=== PATIENT | male | born 1975 | race Caucasian/White ===

== ENCOUNTER → 2024-05-28 14:45 | Outpatient (REF) | payer OTHER, SELFPAY | LOC: RAD 14:45 | PROVIDERS: ATTENDING PHYSICIAN Family Medicine | DX: M54.9 Dorsalgia, unspecified (principal); N39.0 Urinary tract infection, site not specified | CPT/HCPCS: 76770 ==

== ENCOUNTER 2025-03-26 15:34 | Emergency (ER) | payer OTHER, SELFPAY ==
[2025-03-26 15:39] VITALS: BP 135/97
[2025-03-26 15:59] LABS: % Basophils 1.2 % (0-2); % Eosinophils 4.7 % (0-6); % Immature Granulocytes 0.3 % (0-0.5); % Lymphocytes 37.2 % (20.5-51.1); % Neutrophils 48.6 % (42.2-75.2); Absolute Basophils 0.1 10^3/uL (0-0.2); Absolute Eosinophils 0.4 10^3/uL (0-0.7); Absolute Lymphocytes 3.5 10^3/uL (1.2-3.4); Absolute Monocytes 0.8 10^3/uL (0.1-0.6); Absolute Neutrophils 4.5 10^3/uL (1.4-6.5); Hematocrit 46.9 % (39.0-52.0); Hemoglobin 16.7 g/dL (13.0-18.0); Mean Corp Hgb Conc. 35.6 g/dL (33.0-37.0); Mean Corpuscular Hgb 30.1 pg (27.0-31.0); Mean Corpuscular Volume 84.5 fL (80.0-94.0); Mean Platelet Volume 9.9 fL (7.4-10.4); Nucleated Red Blood Cells % 0 % (-); Platelet Count 300 10^3/uL (130-400); Red Blood Cell Count 5.55 10^6/uL (4.70-6.10); Red Cell Dist. Width 13.7 % (11.5-14.5); White Blood Cell Count 9.3 10^3/uL (4.8-10.8)
[2025-03-26 16:14] LABS: ALT (SGPT) 51 U/L (0-50); AST (SGOT) 39 U/L (17-59); Albumin 5.1 g/dl (3.5-5.0); Alkaline Phosphatase 42 U/L (38-126); Blood Urea Nitrogen 16 mg/dl (9-20); Calcium 9.6 mg/dl (8.4-10.2); Carbon Dioxide 26 mmol/L (22-30); Chloride 109 mmol/L (98-107); Glucose 97 mg/dl (70-99); Potassium 4.4 mmol/L (3.5-5.1); Sodium 142 mmol/L (135-145); Total Bilirubin 1.1 mg/dl (0.2-1.3); Total Protein 7.9 g/dl (6.3-8.2); eGFR > 60.00
[2025-03-26] MEDS: NSS 1000 IV (18:08)
[2025-03-26] MEDS: ZOFRAN 4 MG IV (18:09)
[2025-03-26] MEDS: DILAUDID 0.5 MG IV (18:09)
[2025-03-26] MEDS: TORADOL 15 MG IV (18:09)
--- NOTE | 2025-03-26 18:16 | ED.GENMED ---
History of Present Illness
General
Chief Complaint: Flank Pain
Source: patient
Exam Limitations: none
Time Seen by Provider: 03/26/25 17:31
Nursing documentation reviewed up to this point in time: agreed with
History of Present Illness
History of Present Illness:
49-year-old male with no reported chronic medical issues presents for evaluation of left flank pain. Patient reports onset of symptoms this morning and they have been constant since that time although intensity waxing waning. He reports an intense
pain left flank radiates towards his left hip. No clear triggering or relieving factors noted. He had mild nausea this morning which is resolved, no vomiting. No diarrhea or constipation. No fever or chills. He denies any dysuria, hematuria,
change in urinary frequency. He denies any trauma or injury. No weakness or numbness in the legs. Denies similar symptoms in the past.
Past History
Past History
ED Past Medical History: Other (Meningitis); Negative Asthma, HTN, Hypercholesterolemia or NIDDM
ED Past Surgical History: Appendectomy
Social History
Tobacco: Non-smoker
Alcohol: Occasional
Personal: Single
Living: with family
Review of Systems
Review of Systems
All Other Systems: ROS reviewed and negative except as documented in HPI and ROS
Constitutional: Denies fever or chills
Respiratory: Denies trouble breathing
Cardiac: Denies chest pain
ABD/GI: Reports nausea; Denies abdominal pain, vomiting or diarrhea
: Reports flank pain; Denies dysuria or frequency
Musculoskeletal: Denies neck pain
Neurological: Denies dizzy or headache
Phy Exam
Physical Exam
Physical Exam:
General: Awake, alert, appears uncomfortable
Head: Normocephalic, atraumatic
Eyes: Conjunctiva normal, sclera anicteric
Throat: Airway intact, handling secretions
Neck: Trachea midline, supple without meningismus
Lungs: Clear to auscultation bilaterally, no wheezing, rales, rhonchi
Heart: Regular rate and rhythm, no murmurs, gallops, or rubs
Abd: Soft, non distended, nontender
Back: No CVA tenderness or reproducible tenderness
Neuro: No gross deficit
Skin: no rash in area of concern
Extremities: Warm and well-perfused
Scores
Heart Failure Risk
Heart Failure Risk Score: Not Applicable
Heart Score for Chest Pain Patients
STEMI patient?: Not applicable
Withdrawal Assessment of Alcohol
Withdrawal Assessment Completed?: Not applicable
Course
Orders/Labs/Results
Orders:
Orders
03/26/25 15:43
Complete Blood Count/With Diff Urgent
Comprehensive Metabolic Panel Urgent
03/26/25 18:03
HYDROmorphone [Dilaudid] 0.5 mg IV NOW STA
Ketorolac [Toradol] 15 mg IV NOW STA
Ondansetron Injectable [Zofran] 4 mg IV NOW STA
03/26/25 18:04
CT Abd/pel Without Iv Or Oral Urgent
Comment:
Reason For Exam: left flank pain
0.9% Sodium Chloride 1000 ml [Nss] 1,000 ml IV BOLUS
03/26/25 19:33
HYDROmorphone [Dilaudid] 1 mg IV NOW STA
03/26/25 19:56
Urinalysis Reflex To Culture Urgent
Date Specimen was Collected: 03/26/25
Time Specimen was Collected: 15:41
03/26/25 20:45
US Periph Venous LOWER Ext LT Urgent
Comment:
Reason For Exam: left thigh pain and swelling
Abnormal Lab Results
03/26/25
15:43
Absolute Lymphs (auto) 3.5 H 10^3/uL
(1.2-3.4)
Absolute Monos (auto) 0.8 H 10^3/uL
(0.1-0.6)
Chloride 109 H mmol/L
(98-107)
ALT 51 H U/L
(0-50)
Albumin 5.1 H g/dl
(3.5-5.0)
03/26/25 15:43
03/26/25 15:43
Vital Signs
Initial and Last Documented VS:
Initial Vital Signs
Temp Pulse Resp BP Pulse Ox
36.6 C 82 20 135/97 97
03/26/25 15:39 03/26/25 15:39 03/26/25 15:39 03/26/25 15:39 03/26/25 15:39
Last Documented Vital Signs
Temp Pulse Resp BP Pulse Ox
36.6 C 71 18 149/104 99
03/26/25 15:39 03/26/25 18:19 03/26/25 18:19 03/26/25 18:19 03/26/25 18:19
MDM/Problems Addressed
Differential Diagnosis Includes:
Nephrolithiasis, UTI, muscular strain, AAA less likely, diverticulitis less likely
MDM/Problems Addressed:
49-year-old male presents for evaluation of left flank pain as described above. Vitals and exam as above. Will place an IV check labs including a CBC and a CMP, urinalysis. Check CT abdomen pelvis. Will treat with pain, antiemetic, fluids.
Monitor closely reassess after the above.
Labs reviewed: CBC and CMP unremarkable. Urinalysis negative. CT abdomen pelvis shows no acute abnormalities. Patient feeling better after pain meds here in the emergency room. Possible that this is muscular pain or radiculopathy. When I
reassessed the patient he began complaining that he has noticed over the past few days pain and swelling in the medial thigh in the absence of trauma. He has some tenderness along the medial aspect of the thigh but no erythema, warmth, induration,
no palpable cords, no edema in the rest of the leg. Will check DVT study.
DVT study negative. Patient remains comfortable. Suspect this point either radiculopathy which would account for her flank pain and leg pain. Will start on steroids, pain control. Follow-up with primary doctor. Patient comfortable to this. All
questions answered.
*Radiology
Radiology exam reviewed: radiology read reviewed
*Pulse Oximetry
Patient hypoxic: no
*Critical Care Note
Total Time (30-74mins, 75-104mins- exclusive of procedures): Not Applicable
Data Reviewed
Source: patient
ED Attending Note
-
Portions of this chart may have been created with voice recognition software.� Occasional wrong word or��sound alike� substitutions may have occurred due to the inherent limitations of voice recognition software.
Discharge Plan
Departure
Patient Disposition: Home (Routine Discharge)
Date of Disposition: 03/26/25
Time of Disposition: 21:32
Patient with high blood pressure during this ER visit?: Yes
Discharge Problem:
Flank pain, Leg pain
Instructions: Flank Pain (DC), Radiculopathy of the neck and back (including sciatica) - Discharge instruc
Prescriptions:
New
prednisone 10 mg Tablet
See Rx Instructions .ROUTE .COMPLEX Qty: 45 0RF
Rx Instructions:
Take By Mouth:
50 mg daily x3 days, 40 mg daily x3 days,
30 mg daily x3 days, 20 mg daily x3 days,
10 mg daily x3 days
oxycodone 10 mg tablet
10 mg PO Q8H PRN (Reason: Pain) Qty: 10 0RF
No Action
dextroamphetamine-amphetamine [Adderall] 20 MG tablet
20 mg PO .AM
dextroamphetamine-amphetamine [Adderall XR] 30 MG capsule,extended release 24hr
30 mg PO .1 PM
Medical Marijuana
ibuprofen 600 MG tablet
600 mg PO Q6HPRN PRN (Reason: mild pain) 0RF
diazepam [Valium] 10 MG tablet
10 mg PO TIDPRN PRN (Reason: back pain)
diazepam 5 MG tablet
5 mg PO Q6HPRN PRN (Reason: Muscle spasm) Qty: 10 0RF
acetaminophen-codeine 300-30 mg tablet
1 tab PO Q4H PRN (Reason: pain) Qty: 7 0RF
Referrals:
Zhen Valente MD [Family Provider, [facility]] - Follow up in 5-7 days
Activity Restrictions/Additional Instructions:
Thank you for visiting the Emergency Department at [facility].
1. Please schedule a follow up appointment as directed. Call first thing tomorrow morning to make an appointment.
2. If indicated, please take your medications as instructed and indicated on discharge paperwork.
3. If any of your symptoms do not improve, or persist, or become more severe within 6-12 hours, please return to the emergency department for further care.
4. Please return to the emergency department if you develop a headache, neck pain/stiffness, fever greater than 100.4F, chest pain, shortness of breath, persistent nausea, vomiting, slurred speech, difficulty walking, numbness/tingling, weakness,
signs of infection or any other symptoms that are worrisome to you.
Please call [phone] if you have any questions.
Interventions
Interventions:
*Risk Screen - Suicide Last Done: 03/26/25 15:39
*General Assessment Last Done: 03/26/25 17:57
*Neglect/Abuse Screening Last Done: 03/26/25 15:39
*ED- Fall Risk Assessment Last Done: 03/26/25 17:57
*ED COVID-19 Vaccine History Last Done: 03/26/25 17:57
LP-Zjcpao-Ddjkijbrax Assessment Last Done: 03/26/25 20:00
ED-Male Genitourinary Assessment Last Done: 03/26/25 20:00
Discharge Date and Time
Print Language: MONGOLIAN
[2025-03-26 18:19] VITALS: BP 149/104
[2025-03-26] MEDS: DILAUDID 1 MG IV (19:52)
[2025-03-26 20:22] LABS: Urine Albumin Negative (Neg - Trace); Urine Bilirubin Negative (Negative); Urine Character Clear (Clear); Urine Color Yellow; Urine Glucose Negative (Negative); Urine Ketone Negative (Negative); Urine Leukocyte Negative (Negative); Urine Nitrite Negative (Negative); Urine Occult Blood Negative (Negative); Urine Urobilinogen Negative (Neg - 1+)
== END 2025-03-26 21:58 | disposition home or self-care (01) ==
LOC: EMR 15:34
PROVIDERS: Emergency Medicine; EMERGENCY PHYSICIAN Emergency Medicine; FAMILY PHYSICIAN Family Medicine
DX: R10.9 Unspecified abdominal pain (principal); Z90.49 Acquired absence of other specified parts of digestive tract
CPT/HCPCS: 99284; 96374; 96375; 96376; 96361; 74176; 80053; 81003; 85025; 93971